=== PATIENT | male | born 1940 | race Asian ===

== ENCOUNTER 2017-11-23 06:14 | Inpatient (IN) | payer OTHER ==
[2017-11-23] VITALS (18 sets, daily range): BP systolic 60–157; BP diastolic 35–86; TEMP 98–99.5; BMI 28.1
[2017-11-23 06:44] LABS: PLATELET COUNT 171 K/uL (142-355)
[2017-11-23 06:57] LABS: POTASSIUM 3.9 mmol/L (3.6-5.2); SODIUM 136 mmol/L (136-145)
[2017-11-23 07:09] LABS: PARTIAL THROMBOPLASTIN TIME 32.2 SECONDS (24.5-33.6)
[2017-11-24] VITALS (70 sets, daily range): BP systolic 78–116; BP diastolic 41–98; TEMP 97.6–99
[2017-11-24 05:59] LABS: PLATELET COUNT 124 K/uL (142-355)
[2017-11-24 06:19] LABS: POTASSIUM 4.1 mmol/L (3.6-5.2)
[2017-11-24 15:16] LABS: POTASSIUM 5.1 mmol/L (3.6-5.2)
[2017-11-24 21:09] LABS: POTASSIUM 5.7 mmol/L (3.6-5.2)
[2017-11-25 01:27] LABS: PLATELET COUNT 102 K/uL (142-355)
[2017-11-25 01:37] LABS: POTASSIUM 6.4 mmol/L (3.6-5.2)
== END 2017-11-25 02:00 | disposition expired | DRG 871 ==
LOC: ED 06:14 → MED/SURG 08:24 → ICU 20:10
PROVIDERS: Family Medicine; ADMIT Internal Medicine
DX: A41.51 Sepsis due to Escherichia coli [E. coli] (principal); K85.80 Other acute pancreatitis without necrosis or infection; K83.0 Cholangitis; N17.8 Other acute kidney failure; I12.0 Hypertensive chronic kidney disease with stage 5 chronic kidney disease or end stage renal disease; N18.5 Chronic kidney disease, stage 5; K81.9 Cholecystitis, unspecified; I10 Essential (primary) hypertension; E11.9 Type 2 diabetes mellitus without complications; R74.8 Abnormal levels of other serum enzymes; E80.6 Other disorders of bilirubin metabolism; E86.0 Dehydration; E11.22 Type 2 diabetes mellitus with diabetic chronic kidney disease
CPT/HCPCS: 36415; 36600; 80048; 80053; 81000; 82150; 82550; 82553; 82805; 83605; 83690; 83735; 83880; 84300; 84484; 85027; 85610; 85730; 87040; 87077; 87186; 87205; 93005; 96374; 96375; 99284; C1768; J0171; J0282; J0461; J0696; J0744; J1170; J1265; J1644; J1885; J1940; J2310; J2405; J2543; J3490